=== PATIENT | female | born 2000 | race Caucasian/White ===

== ENCOUNTER 2022-11-23 08:23 | Emergency (ER) | payer SELFPAY ==
--- OUTSIDE RECORDS SUMMARY | 2022-11-23 08:25 | XMS REPORT | Continuity of Care Document ---
:2000 Author Organization [facility] t Address [address] [facility] [address] [place] [address] Care Team Providers Name Role Phone Unavailable Unavailable Unavailable Payers Payer Name Policy Type Policy Number Effective Date Expiration Date S ource Problems This patient has no known problems. Allergies, Adverse Reactions, Alerts This patient has no known allergies or adverse reactions. Medications This patient has no known medications. Procedures This patient has no known procedures. Encounters Start End Encounter Admission Attending Care Care Encounter Source Date/Time Date/Time Type Type Clinicians Facility Department ID 2021-06-[address] [facility] [id number] [place] 11:52:49 [id number] [facility] Results This patient has no known results.
[2022-11-23] MEDS ORDERED: METOCLOPRAMIDE 10 MG/2mL INJ ONE (09:09)
[2022-11-23] MEDS ORDERED: Ringers Lactate 1,000 ML IV ONE (09:10)
[2022-11-23 09:20] LABS: Absolute Lymphocytes (CBC) 1.8 K/uL (0.7-4.9); Hematocrit 36.4 % (36.0-45.0); Lymphocytes % 20.7 % (15.3-44.8); MCV 93.1 fL (80-100); MPV 9.3 fL (7.6-11.3); RBC Red Blood Cell Count 3.91 M/uL (3.86-4.86)
[2022-11-23 09:41] LABS: Potassium 3.3 mmol/L (3.5-5.1)
[2022-11-23 11:33] LABS: Urine Blood Negative (Negative); Urine Glucose Negative (Negative); Urine Protein 2+ (Negative); Urine Specific Gravity >=1.030 (1.005-1.030); Urine pH 6.5 (5.0-7.0)
[2022-11-23 12:19] LABS: Urine Specific Gravity/Preg >1.030 (1.005-1.030)
--- NOTE | 2022-11-23 12:51 | RAD REPORT ---
EXAM DESCRIPTION: US - Transvaginal OB - 11/23/2022 12:45 pm CLINICAL HISTORY: pelvic pain, lmp 8 weeks prior COMPARISON: No comparisons FINDINGS: A single gestational sac is seen within the uterus. The shape of the sac is within normal limits for gestational age. Within the sac is a single pole with crown-rump length of 6 mm, cor relating to estimated gestational age of 6 weeks 3 days. Estimated date of delivery is 07/16/2023. Heart rate is 110 BPM. The placenta is not yet developed due to early gestational age. The maternal adnexa and ovaries are within normal limits. Normal Doppler blood flow was demonstrated to both ovaries. IMPRESSION: Single live early intrauterine gestation with estimated gestational age of 6 weeks 3 day s, LOW 07/16/2023. No unusual or unexpected finding.
--- NOTE | 2022-11-23 12:58 | ER ---
Nurse's Notes [facility] Name: Chapis Pino Age: 22 yrs Sex: Female : 2000 Arrival Date: 11/23/2022 Time: 08:24 Bed 12 Private MD: Diagnosis: Vomiting Presentation: 11/23 08:43 Chief complaint: Patient states: 8 weeks , reports vomiting. Denies vaginal aa5 bleeding. Coronavirus screen: vomiting. Ebola Screen: Patient denies travel to an Ebola-affected area in the 21 days before illness onset. Initial Sepsis Screen: Does the patient meet any 2 criteria? No. Patient's initial sepsis screen is negative. Does the patient have a suspected source of infection? No. Patient's initial sepsis screen is negative. Risk Assessment: Do you want to hurt yourself or someone else? Patient reports no desire to harm self or others. Onset of symptoms was 2022. 08:43 Acuity: NADJA 3 aa5 08:43 Method Of Arrival: Ambulatory aa5 Historical: - Allergies: 08:56 No Known Allergies; aa5 - Home Meds: 08:56 None [Active]; aa5 - PMHx: 08:56 None; aa5 - PSHx: 08:56 None; aa5 - Immunization history:: Adult Immunizations unknown. - Social history:: Smoking status: Patient denies any tobacco usage or history of. Vital Signs: 08:43 BP 118 / 73; Pulse 86; Resp 18 S; Temp 98(TE); Pulse Ox 100% on R/A; aa5 ED Course: 08:24 Patient arrived in ED. rg4 08:27 Rohith Nuñez PA is PHCP. m 08:27 Sony Roldan MD is Attending Physician. jmm 08:43 Arm band placed on. aa5 08:44 Triage completed. aa5 09:06 BMP Sent. bc6 09:07 CBC with Diff Sent. bc6 09:07 Initial lab(s) drawn, by me, sent to lab. Inserted saline lock: 22 gauge in right bc6 antecubital area, using aseptic technique. 12:44 Quantitative Hcg Sent. bc6 12:46 Transvaginal OB In Process Unspecified. EDMS 12:57 Huan Mckeon MD is Referral Physician. naga Administered Medications: 09:14 Drug: metoCLOPramide IVP 10 mg Route: IVP; Site: right antecubital; aa5 09:15 Drug: Lactated Ringers Solution IV 1000 ml Route: IV; Rate: 1000 bolus; Site: right aa5 antecubital; Outcome: 12:57 Discharge ordered by MD. nielson Signatures: Dispatcher [employer] EDRohith Day PA PA jmm Calderon, Audri RN RN aa5 Magali Yoon 4 Darlin [facility]in [facility]
--- NOTE | 2022-11-23 12:58 | EDPHYS ---
Physician Documentation [facility] Name: Chapis Pino Age: 22 yrs Sex: Female : 2000 Arrival Date: 11/23/2022 Time: 08:24 Bed 12 Private MD: ED Physician Sony Roldan HPI: 11/23 08:41 This 22 yrs old Female presents to ER via Ambulatory with complaints of Vomiting. jmm 08:41 The patient presents to the emergency department with nausea, vomiting. Onset: The jmm symptoms/episode began/occurred gradually, 3 day(s) ago. Possible causes: . The symptoms are aggravated by nothing. The symptoms are alleviated by nothing. Associated signs and symptoms:. This is a 22-year-old female currently 8 weeks IUP the presents emerged department with complaints of vomiting beginning approximate 3 days ago. Currently no OB care. Historical: - Allergies: 08:56 No Known Allergies; aa5 - Home Meds: 08:56 None [Active]; aa5 - PMHx: 08:56 None; aa5 - PSHx: 08:56 None; aa5 - Immunization history:: Adult Immunizations unknown. - Social history:: Smoking status: Patient denies any tobacco usage or history of. ROS: 08:41 Constitutional: Negative for fever, chills, and weight loss, Cardiovascular: Negative jmm for chest pain, palpitations, and edema, Respiratory: Negative for shortness of breath, cough, wheezing, and pleuritic chest pain. 08:41 Abdomen/GI: Positive for vomiting. 08:41 All other systems are negative. Exam: 08:41 Constitutional: This is a well developed, well nourished patient who is awake, alert, jmm and in no acute distress. Head/Face: atraumatic. Eyes: EOMI, no conjunctival erythema appreciated ENT: Moist Mucus Membranes Neck: Trachea midline, Supple Chest/axilla: Normal chest wall appearance and motion. Cardiovascular: Regular rate and rhythm. No edema appreciated Respiratory: Normal respirations, no respiratory distress appreciated Abdomen/GI: Non distended Back: Normal ROM Skin: General appearance color normal MS/ Extremity: Moves all extremities, no obvious deformities appreciated, no edema noted to the lower extremities Neuro: Awake and alert Psych: Behavior is normal, Mood is normal, Patient is cooperative and pleasant Vital Signs: 08:43 BP 118 / 73; Pulse 86; Resp 18 S; Temp 98(TE); Pulse Ox 100% on R/A; aa5 MDM: 08:42 Patient medically screened. [facility] 11:46 Differential diagnosis: viral gastroenteritis, hyperemesis, pyelonephritis. Data [facility] reviewed: vital signs, nurses notes. 12:56 Counseling: I had a detailed discussion with the patient and/or guardian regarding: the [facility] historical points, exam findings, and any diagnostic results supporting the discharge/admit diagnosis, lab results, radiology results, the need for outpatient follow up, to return to the emergency department if symptoms worsen or persist or if there are any questions or concerns that arise at home. ED course: Patient is alert nontoxic in appearance in the ED. Patient states feeling much better. Advised to follow-up with ROSIN BARREL FILLER for further evaluation otherwise given strict return precautions. Patient understood and agrees plan of care.. 11/23 08:41 Order name: CBC with Diff; Complete Time: 09:24 [facility] 11/23 08:41 Order name: BMP; Complete Time: 09:42 [facility] 11/23 08:41 Order name: Saline Lock; Complete Time: 09:07 [facility] 11/23 08:42 Order name: Urine Dipstick-Ancillary (obtain specimen); Complete Time: 11:42 [facility] 11/23 11:23 Order name: Misc. Order: need urine for disp; Complete Time: 11:42 [facility] 11/23 11:44 Order name: Urine --Ancillary (enter results); Complete Time: 12:20 bd 11/23 11:49 Order name: Quantitative Hcg [facility] 11/23 11:34 Order name: Urine Dipstick-Ancillary; Complete Time: 11:41 EDMS 11/23 12:46 Order name: Transvaginal OB; Complete Time: 12:56 EDMS Administered Medications: 09:14 Drug: metoCLOPramide IVP 10 mg Route: IVP; Site: right antecubital; aa5 09:15 Drug: Lactated Ringers Solution IV 1000 ml Route: IV; Rate: 1000 bolus; Site: right aa5 antecubital; Disposition Summary: 11/23/22 12:57 Discharge Ordered Location: Home [facility] Condition: Stable [facility] Diagnosis - Vomiting [facility] Followup: [facility] - With: Huan Mckeon MD - When: 2 - 3 days - Reason: Recheck today's complaints, Continuance of care, Re-evaluation by your physician Forms: - Medication Reconciliation Form iggy - Thank You Letter naga - Antibiotic Education naga - Prescription Opioid Use naga Signatures: Dispatcher [employer] EDMS Rohith Nuñez PA PA jmm Calderon, Audri, RN RN aa5 Corrections: (The following items were deleted from the chart) 12:46 11:50 1st Trimest Single 1st Fetus+US.RAD.BRZ ordered. EDMS EDMS
[2022-11-23 17:50] VITALS: BP 118/73; TEMP 98; O2SAT 100
== END 2022-11-23 13:57 | disposition home or self-care (01) ==
LOC: ER 08:23
DX: O21.9 Vomiting of pregnancy, unspecified (principal); Z3A.01 Less than 8 weeks gestation of pregnancy
CPT/HCPCS: 36415; 76817; 80048; 81003; 81025; 84702; 85025; J2765; J7120

== ENCOUNTER 2023-04-21 11:43 | Emergency (ER) | payer SELFPAY ==
[2023-04-21 12:10] LABS: Absolute Lymphocytes (CBC) 1.7 K/uL (0.7-4.9); Hematocrit 40.6 % (36.0-45.0); Lymphocytes % 29.2 % (15.3-44.8); MPV 9.3 fL (7.6-11.3); Platelets 218 thou/uL (152-406); RBC Red Blood Cell Count 4.27 M/uL (3.86-4.86)
--- NOTE | 2023-04-21 12:26 | RAD REPORT ---
EXAM DESCRIPTION: RAD - Chest Single View - 04/21/2023 12:22 pm CLINICAL HISTORY: CHEST PAIN COMPARISON: Chest Single View dated 03/30/2017 FINDINGS: Lines: None. Lungs: No evidence of edema or pneumonia. Pleural: No significant pleural effusions or pneumothorax. Cardiac: The heart size is within normal limits. Mediastinum: Within normal limits. Bones: No acute fractures. Other: None IMPRESSION: No acute cardiopulmonary disease.
[2023-04-21 12:34] LABS: BUN Blood Urea Nitrogen 13 mg/dL (7-18); Bicarbonate 27 mEq/L (21-32); Glomerular Filtration Rate 120 ml/min (=/>90); Glucose Level 105 mg/dL (74-106); Potassium 3.6 mEq/L (3.5-5.1); Sodium Level 135 mEq/L (136-145)
[2023-04-21 12:40] LABS: Troponin High Sensitivity < 3.0 pg/mL (<58.9)
--- NOTE | 2023-04-21 13:02 | ER ---
Nurse's Notes [facility] Name: Chapis Pino Age: 22 yrs Sex: Female : 2000 Arrival Date: 04/21/2023 Time: 11:43 Bed 13 Private MD: Diagnosis: Chest pain, unspecified Presentation: 04/21 11:58 Chief complaint: Sent from [facility] for abnormal EKG, pt c/o midsternal chest hb pain that radiates to back and left arm x 1 week. Denies SOB/cough. Coronavirus screen: At this time, the client does not indicate any symptoms associated with coronavirus-19. Ebola Screen: No symptoms or risks identified at this time. Initial Sepsis Screen: Does the patient meet any 2 criteria? No. Patient's initial sepsis screen is negative. Does the patient have a suspected source of infection? No. Patient's initial sepsis screen is negative. Risk Assessment: Do you want to hurt yourself or someone else? Patient reports no desire to harm self or others. Onset of symptoms was April 14, 2023. 11:58 Method Of Arrival: Ambulatory 11:58 Acuity: NADJA 3 hb ENGLISH ADJUNCT FACULTY: 12:05 LMP N/A - mb9 Historical: - Allergies: 12:00 No Known Allergies; hb - Home Meds: 12:00 None [Active]; hb - PMHx: 12:00 None; hb - PSHx: 12:00 None; hb - Immunization history:: Adult Immunizations up to date. - Social history:: Smoking status: Patient denies any tobacco usage or history of. Patient uses street drugs, marijuana. Screenin:06 [facility] ED Fall Risk Assessment (Adult) History of falling in the last 3 months, mb9 including since admission No falls in past 3 months (0 pts) Confusion or Disorientation No (0 pts) Intoxicated or Sedated No (0 pts) Impaired Gait No (0 pts) Mobility Assist Device Used No (0 pt) Altered Elimination No (0 pt) Score/Fall Risk Level 0 - 2 = Low Risk Oriented to surroundings, Maintained a safe environment, Educated pt \T\ family on fall prevention, incl call for assistance when getting out of bed. Abuse screen: Denies threats or abuse. Nutritional screening: No deficits noted. Tuberculosis screening: No symptoms or risk factors identified. Assessment: 12:41 Reassessment: No changes from previously documented assessment. Patient and/or family mb9 updated on plan of care and expected duration. Pain level reassessed. Patient is alert, oriented x 3, equal unlabored respirations, skin warm/dry/pink. 13:12 Reassessment: Patient and/or family updated on plan of care and expected duration. Pain mb9 level reassessed. Patient is alert, oriented x 3, equal unlabored respirations, skin warm/dry/pink. Patient states feeling better. Patient states symptoms have improved. Vital Signs: 12:01 BP 145 / 84; Pulse 79; Resp 16; Temp 98.4; Pulse Ox 100% on R/A; Weight 55.34 kg; hb Height 5 ft. 4 in. ; Pain 5/10; 12:41 BP 109 / 56; Pulse 68; Resp 18; Pulse Ox 100% on R/A; mb9 12:01 Body Mass Index 20.94 (55.34 kg, 162.56 cm) hb 12:01 Pain Scale: Adult hb ED Course: 11:44 Patient arrived in ED. mr 11:46 Fany Upton, [facility] kb 11:46 Ashely Lagunas MD is Attending Physician. kb 11:54 Edda Orozco RN is Primary Nurse. mb9 11:54 Arm band placed on. mb9 12:00 Triage completed. hb 12:06 Placed in gown. Bed in low position. Call light in reach. Side rails up X 1. Client mb9 placed on continuous cardiac and pulse oximetry monitoring. NIBP monitoring applied. tech brazer tester on. 12:06 EKG done, by ED staff. aw1 12:06 No provider procedures requiring assistance completed. Inserted saline lock: 22 gauge mb9 in right antecubital area, using aseptic technique. 12:07 Basic Metabolic Panel Sent. mb9 12:07 CBC with Diff Sent. mb9 12:07 Troponin HS Sent. mb9 12:22 X-ray completed. Portable x-ray completed in exam room. Patient tolerated procedure mh1 well. 12:24 XRAY Chest (1 view) In Process Unspecified. EDMS 13:12 IV discontinued, intact, bleeding controlled, No redness/swelling at site. Pressure mb9 dressing applied. Administered Medications: No medications were administered Medication: 12:06 VIS not applicable for this client. mb9 Outcome: 13:02 Discharge ordered by MD. montgomery 13:12 Discharged to home ambulatory. mb9 13:12 Condition: stable 13:12 Discharge instructions given to patient, Instructed on discharge instructions, follow up and referral plans. Demonstrated understanding of instructions, follow-up care. 13:12 Patient left the ED. mb9 Signatures: Dispatcher [employer] EDWY Fany Upton, AMINA CHROMIUM PLATER-Edda Buck mr Hooks[place] 1 Valerie Hong, RN RN Edda Orozco RN RN mb9 Brielle Steen aw1
--- NOTE | 2023-04-21 13:02 | EDPHYS ---
Physician Documentation [facility] Name: Chapis Pino Age: 22 yrs Sex: Female : 2000 Arrival Date: 04/21/2023 Time: 11:43 Bed 13 Private MD: ED Physician Ashely Lagunas HPI: 04/21 12:01 This 22 yrs old Female presents to ER via Ambulatory with complaints of Abnormal EKG. kb 12:01 The patient or guardian reports chest pain that is located primarily in the substernal kb area, anterior chest wall, left. The pain radiates to the left arm. Associated signs and symptoms: The patient has no apparent associated signs or symptoms. The chest pain is described as aching. Duration: The patient or guardian reports a single episode. Modifying factors: The symptoms are alleviated by nothing. the symptoms are aggravated by nothing. Severity of pain: At its worst the pain was mild in the emergency department the pain is unchanged. The patient has not experienced similar symptoms in the past. The patient has been recently seen by a physician:. Patient reports left arm pain and chest pain for 1 week. Went to [facility] today had an EKG done and was told to come to the ER for further evaluation.. PIPER HELPER: 12:05 LMP N/A - mb9 Historical: - Allergies: 12:00 No Known Allergies; hb - Home Meds: 12:00 None [Active]; hb - PMHx: 12:00 None; hb - PSHx: 12:00 None; hb - Immunization history:: Adult Immunizations up to date. - Social history:: Smoking status: Patient denies any tobacco usage or history of. Patient uses street drugs, marijuana. ROS: 12:02 Constitutional: Negative for fever, chills, and weight loss. kb 12:02 Cardiovascular: Positive for chest pain. 12:02 MS/extremity: Positive for pain, of the left arm. 12:02 All other systems are negative. Exam: 12:02 Constitutional: This is a well developed, well nourished patient who is awake, alert, kb and in no acute distress. Head/Face: Normocephalic, atraumatic. ENT: Moist Mucous membranes Cardiovascular: Regular rate and rhythm with a normal S1 and S2. No gallops, murmurs, or rubs. No pulse deficits. Respiratory: Respirations even and unlabored. No increased work of breathing. Talking in full sentences Abdomen/GI: Soft, non-tender. No distention Skin: Warm, dry with normal turgor. Normal color. MS/ Extremity: Pulses equal, no cyanosis. Neurovascular intact. Full, normal range of motion. Neuro: Awake and alert, GCS 15, oriented to person, place, time, and situation. Moves all extremities. Normal gait. 12:17 ECG was reviewed by the Attending Physician. kb Vital Signs: 12:01 BP 145 / 84; Pulse 79; Resp 16; Temp 98.4; Pulse Ox 100% on R/A; Weight 55.34 kg; hb Height 5 ft. 4 in. ; Pain 5/10; 12:41 BP 109 / 56; Pulse 68; Resp 18; Pulse Ox 100% on R/A; mb9 12:01 Body Mass Index 20.94 (55.34 kg, 162.56 cm) hb 12:01 Pain Scale: Adult hb MDM: 11:46 Patient medically screened. kb 12:02 Differential diagnosis: abnormal EKG, acute myocardial infarction, anxiety, coronary kb artery disease chest wall pain. Data reviewed: vital signs, nurses notes. External Records Reviewed: EKG that was completed at [facility] reviewed. 13:01 Counseling: I had a detailed discussion with the patient and/or guardian regarding: the kb historical points, exam findings, and any diagnostic results supporting the discharge/admit diagnosis, lab results, radiology results, the need for outpatient follow up, a family practitioner, to return to the emergency department if symptoms worsen or persist or if there are any questions or concerns that arise at home. 04/21 11:52 Order name: Basic Metabolic Panel; Complete Time: 12:50 kb 04/21 11:52 Order name: CBC with Diff; Complete Time: 12:17 kb 04/21 11:52 Order name: Troponin HS; Complete Time: 12:50 kb 04/21 11:52 Order name: XRAY Chest (1 view); Complete Time: 12:27 kb 04/21 11:52 Order name: EKG; Complete Time: 11:53 kb 04/21 11:52 Order name: Cardiac monitoring; Complete Time: 11:54 kb 04/21 11:52 Order name: EKG - Nurse/Tech; Complete Time: 12:05 kb 04/21 11:52 Order name: IV Saline Lock; Complete Time: 12:07 kb 04/21 11:52 Order name: Labs collected and sent; Complete Time: 12:07 kb 04/21 11:52 Order name: O2 Per Protocol; Complete Time: 11:54 kb 04/21 11:52 Order name: O2 Sat Monitoring; Complete Time: 11:54 kb EC:17 Rate is 68 beats/min. Rhythm is regular. QRS [place] is Normal. TN interval is normal at kb 118 msec. QRS interval is normal at 100 msec. QT interval is normal at 429 msec. Administered Medications: No medications were administered Disposition Summary: 04/21/23 13:02 Discharge Ordered Location: Home kb Condition: Stable kb Diagnosis - Chest pain, unspecified kb Followup: kb - With: Emergency Department - When: As needed - Reason: Worsening of condition Followup: kb - With: Private Physician - When: 2 - 3 days - Reason: Recheck today's complaints, Continuance of care, Re-evaluation by your physician Discharge Instructions: - Discharge Summary Sheet kb - Nonspecific Chest Pain, Adult, [id number] kb Forms: - Medication Reconciliation Form kb - Thank You Letter kb - Antibiotic Education kb - Prescription Opioid Use kb - Patient Portal Instructions kb - Work release form hb Signatures: Dispatcher [employer] Fany Lopez, AMINA DEMPSEY-Valerie Galicia, RN RN hb
[2023-04-21 13:17] VITALS: TEMP 98.4; O2SAT 100
[2023-04-21 13:19] VITALS: BP 109/56
--- NOTE | 2023-04-23 15:32 | EKG ---
Test Date: 2023-04-21 Test Time: 12:02:07 Wallpaperer: NANCY MEASUREMENT RESULTS: Intervals: Rate: 68 NC: 118 QRSD: 100 QT: 404 QTc: 429 [place]: P: 60 NC: 118 QRS: 65 T: 74 INTERPRETIVE STATEMENTS: Normal sinus rhythm Normal ECG Compared to ECG 03/30/2017 19:09:21 No significant changes Electronically Signed On 04-23-23 15:30:33 CDT by Baldev Crawley
== END 2023-04-21 13:12 | disposition home or self-care (01) ==
LOC: ER 11:43
DX: R07.89 Other chest pain (principal)
CPT/HCPCS: 36415; 71045; 80048; 84484; 85025; 93005; 99284